=== PATIENT | female | born 1950 | race Caucasian/White ===

== ENCOUNTER 2017-09-04 14:20 | Inpatient (IN) ==
[2017-09-04 15:56] VITALS: BMI 26.8
--- NOTE | 2017-09-04 16:16 | IRU History & Physical Report ---
HPI IRU Date: Date: 09/04/17 Time: 1610 Chief complaint: I had a seizure HPI: Ms. Sewell is a pleasant 67-year-old female referred by Dr. Gavino King at [facility]. Primary care provider is Dr. Garcia Norman. 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 Patient developed acute confusion at home on 08/30/2017. History is obtained from the patient as well as her as well as transfer records. When her first came home that day she seemed to be fine. She then went into the bathroom and he found her at that location "speaking gibberish" and staring off to the right side. She complained of dizziness and was acutely confused. That was at roughly 5:30 PM on 08/30/2017. Her contacted Dr. Torres, oncologist, who advised her to go directly to [facility]. EMS was activated and she was transported to the emergency department at [facility]. Initial NIH score was 15 (for confusion, forced right gaze, right-sided weakness and severe aphasia with mild dysarthria and right sided neglect). The on-call stroke physician, Dr. Joe recommended obtaining CT of the head and CT angiogram of the head and neck. CT of the head revealed improvement from prior MRI study with resolution of previously seen large mass in the left frontal lobe as well as vasogenic edema. 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 CT angiogram of the head and neck was negative for significant stenosis. There was ring enhancing mass to the left parietal lobe. She was admitted to the neuro critical care unit. The patient subsequently was noted to have rhythmic tremors which then transitioned to a tonic-clonic seizure lasting about 1-1/2 minutes. Seizure was self aborted prior to obtaining Ativan for administration. electrocardiogram technician arrived and she was placed on continuous EEG. Patient was then intubated and given Ativan and sedated with propofol for burst suppression. She was reportedly intubated on August 30 and extubated on September 02. She was loaded with Keppra intravenously and transitioned to oral Keppra. She was also started on corticosteroids in the form of Decadron. She was seen by Dr. Sauceda, neurosurgery. With regard to the patient's malignancy, she has reportedly undergone 10 rounds of radiation with 6 rounds of chemotherapy with her last chemotherapy being given 4 weeks ago. She is scheduled to start her next chemotherapy next month. Oncologist is Dr. Torres and radiation therapist is Dr. Morgan. She is reported to have some memory issues as a baseline according to her . However since the seizure is been dramatically worse. In addition, the patient has developed worsening visual changes and has seen "children playing" out the right side of her field of vision. She has reduced vision and reduced hearing since diagnosis of the metastatic lung cancer as well. Prior level of functioning indicates that she was independent for all activities. 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 The patient lives in her own mobile home with her . She does not use any assistive devices for ambulation. She has 4 steps to get up into the home. Current level of functioning is as follows: She requires supervision for eating , minimum assistance for grooming, bathing, upper and lower body dressing and toileting. She requires minimum assistance for toilet transfers. She has multiple episodes of loss of balance and requires total assistance for walking 120 feet. She requires minimum assistance for stairs. As noted she has loss of balance particularly with turning her head. She has multiple balance deficits and ambulation deficits along with cognition reduction and safety awareness deficits. She has visual perceptual deficits. She has required speech therapy and modification of her diet as well. She was seen by speech therapy in [place] and underwent a bedside swallow evaluation. Recommendation was for. Solids and nectar thick liquids, straws okay , upright and alert for all oral intake, small bites and sips slow rate. We discussed the issue of resuscitation with her present. At this time she wants to be a full code. The following medical conditions are noted and require active monitoring and/or management: 1. Seizure with recent status epilepticus 2. Metastatic small cell lung cancer to brain 3. Hypertension The following therapies will be needed: 1. Physical therapy: for transfers and ambulation and stairs. 2. Occupational therapy: for ADL's and transfers. 3. Speech therapy: for swallow eval, training and cognitive linguistic training 4. Medical management: for the above conditions. 5. 24 hour Rehabilitation Nursing to monitor and address the following: Neurologic status, monitor for recurrent seizures, swallowing safety and to reduce fall risk. 6. Dietitian: in view of malignancy and change in swallow ability [facility] Patient Stated Medical History Hypertension Yes Sleep Apnea No Anemia Yes Other Musculoskeletal Yes: LOSS OF MEMORY, Chemotherapy Yes Medical History Updates: 1. Metastatic small cell lung cancer, metastatic to brain. 2. Seizures with recent status epilepticus. 3. Hypertension Surgical History: 1. Insertion of Port-A-Cath 03/26/2017. 2. Percutaneous biopsy left lung mass 03/02/2017. 3. HILDA with BSO 1996. 4. Breast biopsy, 1970s, benign. 5. Detached retina, right eye, repaired with laser treatment Family History: Mother has history of stroke. Father of malignancy as did her grandmother had bone cancer. Grandfather on her mother's side had cancer of the colon. Brother had coronary artery disease and diabetes. 2 sisters have had "pelvic cancer." - Social History Smoking status: Former smoker Packs per day: 1 (patient smoked from age 23 through age 64, stopping 3 years ago.) Alcohol intake: former (reports fairly heavy use in the past but not for number of years. 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 She is and lives with her in a mobile home. They have 4 steps to get up into their home. Review of Systems - Constitutional Constitutional: Present: weight gain (with use of corticosteroids.). Absent: anorexia, chills, fatigue, fever(s), headache(s), lethargy, malaise, night sweats, weakness, weight loss - EENMT Eyes: Present: blurry vision, change in vision, other (visual hallucinations to her right.). Absent: diplopia Ears: Present: other (decreased hearing.) Mouth/Throat: Present: changes in swallowing. Absent: painful swallowing, change in taste, bleeding gums, change in voice - Cardiovascular Cardiovascular: Absent: chest pain, palpitations, syncope, dyspnea on exertion, orthopnea, edema, cyanosis, heart murmur Rhythm: Present: regular rhythm Vascular: Absent: intermittent claudication, pedal edema, unilateral swelling - Respiratory Respiratory: Present: cough, dyspnea, dyspnea on exertion. Absent: hemoptysis, wheezing, pain on inspiration, chest congestion, excessive phlegm production - Gastrointestinal Gastrointestinal: Present: constipation. Absent: abdominal pain, change in bowel habits, diarrhea, dyspepsia, dysphagia, early satiety, hematochezia, melena, nausea, vomiting - Musculoskeletal Musculoskeletal: Absent: arthralgias, back pain, joint swelling, limited range of motion, muscle weakness - Integumentary/Breasts Integumentary: Absent: alopecia, erythema, lesions, pruritus, rash, jaundice - Neurological Neurological: Present: confusion, convulsions, loss of vision, memory loss. Absent: abnormal gait, abnormal movements, abnormal speech, dizziness, focal weakness, frequent falls, headache(s), numbness, paresthesias, tremor(s) - Psychiatric Psychiatric: Absent: abnormal sleep pattern, anxiety, depression - Endocrine Endocrine: Absent: cold intolerance, flushing, heat intolerance, palpitations - Hematologic/Lymphatic Hematologic/Lymphatic: Absent: easy bleeding, easy bruising, lymphadenopathy - Allergic/Immunologic Allergic/Immunologic: Absent: urticaria Medications Home Medications Medication Instructions Recorded Confirmed Type Dexamethasone Po [Decadron] 1 tab PO QID 03/23/17 09/04/17 History Multivitamin [Multivitamins] 1 tab PO DAILY 03/23/17 09/04/17 History levETIRAcetam [Levetiracetam] 2 tab PO BID 09/04/17 09/04/17 History Allergies Allergy/AdvReac Type Severity Reaction Status Date / Time alendronate sodium Allergy Rash Verified 05/04/17 08:50 [From Fosamax] Penicillins Allergy Verified 05/04/17 08:50 Exam Vital Signs: Temperature 97.8 F 09/04/17 15:53 Pulse Rate 97 09/04/17 15:53 Respiratory Rate 20 09/04/17 15:53 Blood Pressure 148/73 H 09/04/17 15:53 Pulse Oximetry 100 09/04/17 15:53 Height/Weight/BMI: Height 1.73 m Weight 80 kg Body Mass Index 26.8 - Constitutional Present: no acute distress, well nourished, well developed, average body habitus , cooperative - Routine HEENT Exam Head: Present: normocephalic, atraumatic. Absent: cushingoid faces, abrasion, laceration, hematoma Eye: Present: EOMI. Absent: PERRL (the left pupil is irregular which she states was sustained in an accident as a child.), conjunctival icterus, scleral injection, periorbital swelling, nystagmus ENT: Present: mucous membranes moist, oropharynx clear. Absent: dentition normal (has no upper teeth.) - Routine Neck Exam Present: supple, full ROM, trachea midline. Absent: lymphadenopathy, thyromegaly, tenderness, swelling - Routine Chest/Breast/Axilla Exam Chest wall: Absent: tenderness, mass Axillae: Absent: lymphadenopathy, mass - Routine Respiratory Exam Present: CTA bilaterally. Absent: accessory muscle use, decreased breath sounds , prolonged expiratory phase, rales, respiratory distress, rhonchi, stridor, wheezes, crackles, distant breath sounds - Routine Cardiovascular Exam Present: RRR, S1, S2, no murmur. Absent: gallop, S3, S4, click, irregular rhythm Comments: Port noted in upper chest - Routine Abdominal Exam Present: soft, normoactive bowel sounds, non distended, non tender. Absent: rebound, guarding, firm, rigid, organomegaly, mass, hernia, wound - Routine Extremities Exam Present: no edema, non tender, pulses intact, normal capillary refill. Absent: cyanosis, clubbing - Routine Back/Spine/Pelvis Exam Back/Spine: Present: full ROM. Absent: scoliosis, kyphosis - Routine Skin Exam Present: intact, dry, warm. Absent: cyanosis, erythema, pallor, mottling, petechiae, urticaria, lesions, jaundice - Routine Neurological Exam Present: alert, CN II-XII intact, altered mental status (somewhat delayed processing time. Reduced hearing, which this as well.), moving all extremities, facial asymmetry, normal speech, tremors. Absent: oriented X3 (she states she is at via [facility]. However she does know the month, date and year.) - Routine Psychiatric Exam Present: normal affect, normal thought process, cooperative, good insight, good judgment. Absent: depressed, anxious Comments: Somewhat slow to respond at times. No slurred speech as noted. No facial droop. IRU A/P (1) Seizure disorder Current visit: Yes Status: Acute She has had recent status epilepticus requiring intubation and critical care management. She was intubated for approximately 3 days. Since that time her memory has been much worse. She has developed some visual hallucinations. She has sustained multiple functional deficits and requires a multidisciplinary approach with PT, OT and speech therapy. (2) Small cell lung carcinoma Current visit: Yes Status: Chronic Diagnosis approximate February 2017. Dr. Torres is her oncologist. Has received radiation therapy as well as chemotherapy. Most recent cerebral scanning shows improvement in lesions. (3) Hypertension Qualifiers: Hypertension type: essential hypertension Qualified Code(s): I10 - Essential (primary) hypertension Current visit: Yes Status: Chronic DVT Prophylaxis: SCD's, Lovenox GI Prophylaxis: Protonix Resuscitation Status: Full Code - Course Hospital Course: Donald Huffman MD: - Interventions to Obtain Goals PT Treatment Plan: Balance/Proprioception, Functional Activities, Gait Training , Patient/Family Education, Therapeutic Exercise OT Treatment Plan: ADL (Basic Care), Balance Training, Coginitive Skills Development, IADL, Pt./Family Education, Ther. Exercise for ADL Goals Progress/Modifications: This patient had a recent diagnosis of status epilepticus. This is likely due to metastatic disease in the brain. However the lesions were improved on CT scan compared to previous imaging. She has sustained multiple functional deficits and will require a multidisciplinary approach with PT, OT, speech therapy and dietitian along with 24 hour rehabilitation nursing and medical supervision.
--- NOTE | 2017-09-04 16:33 | IRU 24Hr Post Admit Eval ---
24 Hr Post Admission Physical - Relevant Changes Relevant Changes: No Reviewed: I have reviewed the patient's information and concur with the finding and results of the pre-admission screen. Certification: I certify the patient for rehabilitation. - Patient Condition (1) Seizure disorder Status: Acute Code(s): G40.909 - Epilepsy, unspecified, not intractable, without status epilepticus Classification: Present on IRF Admission, IRF Tx That Should Address Diagnosis, Diagnosis Requiring Medical Follow Up (2) Small cell lung carcinoma Status: Chronic Code(s): C34.90 - Malignant neoplasm of unspecified part of unspecified bronchus or lung Classification: Present on IRF Admission, Diagnosis Requiring Medical Follow Up (3) Hypertension Status: Chronic Qualifiers: Hypertension type: essential hypertension Qualified Code(s): I10 - Essential (primary) hypertension Code(s): I10 - Essential (primary) hypertension Classification: Present on IRF Admission, IRF Tx That Should Address Diagnosis, Diagnosis Requiring Medical Follow Up - Prior Functional Status Lives With: Spouse Residence Type: Apartment/Private Home Assitive Devices: None Prior Functional Status: Indep. at home or school - Current Functional Status Current Level of Function: Current level of functioning is as follows: She requires supervision for eating , minimum assistance for grooming, bathing, upper and lower body dressing and toileting. She requires minimum assistance for toilet transfers. She has multiple episodes of loss of balance and requires total assistance for walking 120 feet. She requires minimum assistance for stairs. As noted she has loss of balance particularly with turning her head. She has multiple balance deficits and ambulation deficits along with cognition reduction and safety awareness deficits. She has visual perceptual deficits. She has required speech therapy and modification of her diet as well. Failed Alternative Therapy: Arrived from Acute Care Patient Requirements: The patient requires oversight by rehabilitation physician to manage their rehabilitation treatment plan and multidisciplinary approach to care that can only be provided in an IRF and requires a multidisciplinary approach to care, provided by professional PTs, OTs, STs, dieticians, RTs, rehabilitation nurses and is not available in lesser levels of care. Limitations Req: Mobility Impairment, ADL Impairment, Cognitive Impairment Therapy: The patient is to receive therapy at least 5 days a week. Plan of Care Comment: Physical therapy: 75 minutes daily, 5 days weekly. Occupational therapy: 75 minutes daily, 5 days weekly. Speech therapy: 30 minutes daily, 5 days weekly - Complications/Comorbidities Impact on Functional Outcomes: Patient's reduced memory and cognitive deficit may negatively impact her functional outcome. Barriers to Discharge: Weakness, Balance, Endurance, Comprehension - Plan to Avoid Complications Plan to Avoid Complications: The patient cannot receive this care in a lesser intensive setting such as Correction or Outpatient Therapy due to the patient requiring the following : Patient requires close monitoring of her neurologic status to monitor for recurrence of seizure, or further neurologic decline. She requires a multidisciplinary approach with PT, OT, speech therapy and medical supervision. .
[2017-09-04] MEDS: DEXAMETHASONE 4 MG TABLET PO SCH ×2 (17:55→21:52)
[2017-09-04] MEDS: LEVETIRACETAM 500 MG TABLET PO SCH (21:52)
[2017-09-05] MEDS: DEXAMETHASONE 4 MG TABLET PO SCH ×4 (04:07→21:20)
[2017-09-05] MEDS: PANTOPRAZOLE 40 MG TABLET PO SCH (05:34)
[2017-09-05] MEDS: LEVETIRACETAM 500 MG TABLET PO SCH ×2 (08:34→21:22)
[2017-09-05] MEDS: ENOXAPARIN 40 MG/0.4 ML INJECTION SQ SCH (08:37)
[2017-09-05] MEDS: MULTI-VITAMIN + MINERAL TABLET PO SCH (08:37)
--- NOTE | 2017-09-05 11:31 | Consult Note ---
Consult Information - Data of Consult Consult date: 09/05/17 Requesting Physician: Donald Huffman MD Primary Care Provider: Garcia Norman MD Family Provider: Garcia Norman MD - Consult Narrative Reason for consult: Seizures, metastatic small cell lung cancer History of present illness: Ada is a very pleasant 67-year-old female who was diagnosed with small cell lung cancer in February 2017. She has been under the care of Dr. Kamara and has undergone 6 rounds of chemotherapy with 10 rounds of radiation. On 08/30/17, patient's came home to find patient having some confusion and abnormal speaking. She complained of feeling dizzy and then became nonverbal with a gaze to the right. Patient contacted EMS and patient was transported to via [place] for acute evaluation. There patient began having a tonic-clonic seizure, upon CT scan. Patient was found to have a large mass in the left frontal lobe with presence of edema, found to be metastatic disease. Patient continued to have intermittent seizures and eventually was intubated and admitted to the neuro critical care unit. Patient was on the ventilator from 08/30 until 09/02. She received IV Keppra. During that same time with them was transitioned to oral Keppra as well as corticosteroids. Patient was followed by Dr. Suaceda during her stay. Given the overall weakness and debility following this significant event. Patient was screened and accepted to the inpatient rehabilitation unit for ongoing therapy and strengthening. Patient is seen today for initial medical consultation with her at the bedside. Her is very attentive and give us very specific details regarding patient's past medical history and dates. Patient is scheduled for her next chemotherapy in September. She has required 2 separate blood transfusions following chemotherapy for treatment of anemia. Today patient complains of having a scratchy throat with a hoarse voice that has been present since being extubated on the . Otherwise, she has no complaints. She does report having intermittent mild headaches that are generally treated with Tylenol. She does remember having visual hallucinations while on IV antiepileptic medications. She states that she would see small children in her room, running around. It wasn't until yesterday that she recognized that those were hallucinations rather than reality. Past Medical History Patient Stated Medical History Metastatic small cell lung cancer Metastases mass to brain Seizures GERD Right visual changes (previous detached retina) Previous hypertension Medical History Updates: 1. Metastatic small cell lung cancer, metastatic to brain. 2. Seizures with recent status epilepticus. 3. Hypertension Surgical History: 1. Insertion of Port-A-Cath 03/26/2017. 2. Percutaneous biopsy left lung mass 03/02/2017. 3. HILDA with BSO 1996. 4. Breast biopsy, 1970s, benign. 5. Detached retina, right eye, repaired with laser treatment Family History Updates: Mother-history of stroke. Father- from malignancy. Brother-coronary artery disease, diabetes. Sister-pelvic cancer - Social History Smoking status: Former smoker (smoked from age [age]. 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 Norman Oncologist-Dr. Torres Radiation oncologist-Dr. Morgan Review of Systems All systems PM: 10-point ROS was reviewed, no additional remarkable complaints except - EENMT Eyes: Present: as per HPI, change in vision, other (visual changes on the right. present since 08/30) Mouth/Throat: Present: scratchy throat (since extubation) Medications Home Medications Medication Instructions Recorded Confirmed Type Dexamethasone Po [Decadron] 1 tab PO QID 03/23/17 09/04/17 History Multivitamin [Multivitamins] 1 tab PO DAILY 03/23/17 09/04/17 History levETIRAcetam [Levetiracetam] 2 tab PO BID 09/04/17 09/04/17 History Allergies Allergy/AdvReac Type Severity Reaction Status Date / Time alendronate sodium Allergy Rash Verified 09/04/17 19:04 [From Fosamax] amoxicillin Allergy Verified 09/04/17 19:04 Penicillins Allergy Verified 09/04/17 19:04 Exam Vital Signs: Temperature 98.2 F 09/04/17 20:47 Pulse Rate 98 09/05/17 07:00 Respiratory Rate 20 09/05/17 07:00 Blood Pressure 129/71 09/05/17 07:00 Pulse Oximetry 96 09/05/17 07:00 Height/Weight/BMI: Height 1.73 m Weight 80 kg Body Mass Index 26.8 - Constitutional Present: no acute distress, well nourished, well developed - Routine HEENT Exam Eye: Present: EOMI, PERRL ENT: Present: mucous membranes moist, dentition normal - Routine Respiratory Exam Present: CTA bilaterally. Absent: wheezes - Routine Cardiovascular Exam Present: RRR, S1, S2. Absent: murmur - Routine Abdominal Exam Present: soft, normoactive bowel sounds, non distended. Absent: tenderness - Routine Extremities Exam Present: normal capillary refill - Routine Skin Exam Present: intact, dry, warm - Routine Neurological Exam Present: alert, oriented X3, CN II-XII intact, moving all extremities - Routine Psychiatric Exam Present: normal affect, cooperative Results - Labs CBC & Chem 7: 09/05/17 04:00 09/05/17 04:00 Assessment and Plan Assessment and Plan: Impression Metastatic small cell lung cancer Mets mass to brain Seizure disorder GERD Previous HTN- resolved since chemo Plan Agree with admission to IRU under the care of Dr. Huffman for ongoing therapy and strengthening We will continue to monitor patient for evidence of seizures. She will continue on Keppra 1000 milligrams twice a day long-term. Continue with Decadron. Given history of acid reflux. Will continue Protonix 40 milligrams daily Lovenox SQ for DVT PPX Encourage work with PT and OT for ongoing strengthening as patient does hope to return independently at home with her . The hospitalist services will continue to follow patient and medical management her existing comorbidities. At time of discharge her medical care will return to primary care provider, Dr. Garcia Norman DVT Prophylaxis: Lovenox GI Prophylaxis: Protonix Resuscitation Status: Full Code - Physician Narrative Physician: Tamara Brooks MD Narrative: Date: 09/05/17 Time: 4 PM I reviewed this chart, the patient history, and the TRUCK DRIVER's/PA's documented findings as above. We discussed and formulated the assessment and plan as above with the additions below.-Dr. Brooks The patient was seen this afternoon in her room accompanied by her . She was recently hospitalized at [place] for tonic-clonic seizures secondary to metastatic brain lesions. She was intubated, sedated and placed on IV Keppra and Decadron. She was extubated on the and converted to oral Keppra and Decadron. She did have some hallucinations and thought there were children in her room while she was intubated but has not had hallucinations since that time. She complains of hoarse voice and sore throat that is gradually improving. The symptoms are likely secondary to her recent intubation. She denies any pain elsewhere. She states her appetite has been good. She states she did not have a bowel movement for several days in the hospital at [place] but then had a large amount of diarrheal stool that has now resolved. She states she is urinating well. She states she has had no difficulties with therapy today. On exam she is alert and in no acute distress. HEENT reveals sclerae to be anicteric and pupils are equal. Oropharynx is moist. She does have some bruising of her uvula, likely secondary to recent intubation. Neck is supple. Chest is clear to auscultation. Cardiovascular reveals a regular rate and rhythm. Abdomen is soft and nontender. Extremities are free of edema. Impression and plan Small cell lung cancer with metastasis to brain Seizures secondary to brain metastases-currently doing well on oral Keppra and Decadron Generalized weakness post seizures/intubation-continue with therapy as directed by Dr. Huffman Sore throat post intubation-we'll start Chloraseptic [place] as needed Memory decline-likely secondary to brain metastasis and/or chemotherapy Hospital Course Summary Disclaimer: The visit summary below is not to be considered part of the above Progress Note. Hospital Course: Impression Metastatic small cell lung cancer Mets mass to brain Seizure disorder GERD Previous HTN- resolved since chemo Plan Agree with admission to IRU under the care of Dr. Huffman for ongoing therapy and strengthening We will continue to monitor patient for evidence of seizures. She will continue on Keppra 1000 milligrams twice a day long-term. Continue with Decadron. Given history of acid reflux. Will continue Protonix 40 milligrams daily Lovenox SQ for DVT PPX Encourage work with PT and OT for ongoing strengthening as patient does hope to return independently at home with her . The hospitalist services will continue to follow patient and medical management her existing comorbidities. At time of discharge her medical care will return to primary care provider, Dr. Garcia Norman
[2017-09-05] MEDS: SORE THROAT SPRAY 20ml PO PRN ×2 (16:27→19:10)
[2017-09-06] MEDS: DEXAMETHASONE 4 MG TABLET PO SCH ×4 (05:07→22:30)
[2017-09-06] MEDS: PANTOPRAZOLE 40 MG TABLET PO SCH ×2 (05:08→06:17)
[2017-09-06] MEDS: LEVETIRACETAM 500 MG TABLET PO SCH ×2 (08:39→20:59)
[2017-09-06] MEDS: MULTI-VITAMIN + MINERAL TABLET PO SCH (08:39)
[2017-09-06] MEDS: ENOXAPARIN 40 MG/0.4 ML INJECTION SQ SCH (08:39)
--- NOTE | 2017-09-06 10:48 | IRU Progress Note ---
- Subjective/Serverity of Illness Date: 09/06/17 Ada was evaluated in her room today. She seems to be fairly comfortable. Voice is laryngitic, possibly related to involvement of recurrent laryngeal nerve. She states however that the voice is improving. She does complain of sore throat which she ascribes to the previous ET tube in [place] (she was intubated for about 3 days during her episode of status epilepticus). She is using Sucrets with benefit. She denies any cough or sputum. She does report episodes of dyspnea with exertion. Otherwise she is tolerating therapy without difficulty. She denies any nausea or vomiting. She denies any pains and denies any headaches. She has had no further episodes of seizure activity and remains on Keppra 1000 mg twice daily plus Decadron. She does report visual hallucinations with "movement" noted are the right field of vision. Upon admission she was seeing some children playing. No doubt this is related to her underlying malignancy as well as recent edema. Review blood pressures indicate good control. Exam Vital Signs: Temperature 95.8 F L 09/06/17 07:00 Pulse Rate 89 09/06/17 07:00 Respiratory Rate 16 09/06/17 07:00 Blood Pressure 134/78 09/06/17 07:00 Pulse Oximetry 93 09/06/17 07:00 Height/Weight/BMI: Height 1.73 m Weight 80 kg Body Mass Index 26.8 - Constitutional Present: no acute distress, well nourished, well developed, cooperative Comments: Laryngitic voice quality. - Routine HEENT Exam Head: Present: normocephalic, atraumatic Eye: Present: EOMI ENT: Present: mucous membranes moist, oropharynx clear. Absent: dentition normal - Routine Neck Exam Present: supple - Routine Respiratory Exam Present: decreased breath sounds, CTA bilaterally. Absent: respiratory distress , wheezes, crackles - Routine Cardiovascular Exam Present: RRR, S1, S2. Absent: murmur - Routine Abdominal Exam Present: soft, normoactive bowel sounds, non distended. Absent: tenderness - Routine Extremities Exam Present: no edema, normal capillary refill - Routine Skin Exam Present: dry, warm - Routine Neurological Exam Present: alert, oriented X3, CN II-XII intact. Absent: motor deficit ( neurologic exam today indicates no facial droop, speech fluent although laryngitic. Seems to have good strength bilaterally in the upper and lower extremities.) - Routine Psychiatric Exam Present: normal affect, normal thought process, visual hallucinations ("movement " continuously out of right field of vision.) Results IRU - Labs Labs: Have reviewed labs and other providers notes as well as all chart data. IRU A/P (1) Seizure disorder Current visit: Yes Status: Acute She is reported to be adequately controlled on Keppra at present. Also remains on Decadron for cerebral edema. Tolerating medications adequately. No specific evidence of seizure activity although does have visual hallucinations which are likely due to brain metastases. (2) Small cell lung carcinoma Current visit: Yes Status: Chronic Patient is in between chemotherapy treatments at the present time. Does have laryngitic voice quality which raises the possibility of involvement of recurrent laryngeal nerve. (3) Hypertension Qualifiers: Hypertension type: essential hypertension Qualified Code(s): I10 - Essential (primary) hypertension Current visit: Yes Status: Chronic Blood pressures are reviewed and appear to be adequately controlled. (4) Debility Current visit: Yes Status: Acute She has generalized debility based on recent status epilepticus. She is cooperative with therapy and making progress. DVT Prophylaxis: Lovenox Resuscitation Status: Full Code - Course Hospital Course: Donald Huffman MD: 09/06/17 10:50 No recurrent seizures. Does have visual hallucinations out of the right field of vision. Blood pressures are controlled. Tolerating therapy well. - Interventions to Obtain Goals PT Treatment Plan: Balance/Proprioception, Functional Activities, Gait Training , Patient/Family Education, Therapeutic Exercise OT Treatment Plan: ADL (Basic Care), Balance Training, IADL, Pt./Family Education, Ther. Exercise for ADL Goals Progress/Modifications: Neurologic exam today shows good strength bilaterally in the upper and lower extremities. Seems to be well oriented and cooperative. Does not seem impulsive at present. Does have what appears to be visual hallucinations out the right side of her visual espinoza with "movement" constantly noted. Does not seek "children playing" as she did previously. She does report a sore throat which is likely due to the intubation. Inspection of the throat shows no particular redness and no exudate. Seems to be helped by the use of lozenges. She is tolerating therapy well. Her voice quality is laryngitic which raises the possibility of involvement of recurrent laryngeal nerve. Please note that the patient's individual plan of care was developed and documented today, requiring review of therapy notes, medical conditions and anticipated functional recovery. This required additional medical decision making with regard to interaction of the patient's medical issues with the anticipated functional recovery. Please see separate document.
--- NOTE | 2017-09-06 10:55 | IRU Plan of Care ---
[facility] Overall Plan of Care - Date Date: 09/06/17 - Patient Impairments (1) Seizure disorder Code(s): G40.909 - Epilepsy, unspecified, not intractable, without status epilepticus Status: Acute Classification: Present on IRF Admission, IRF Tx That Should Address Diagnosis, Diagnosis Requiring Medical Follow Up (2) Small cell lung carcinoma Code(s): C34.90 - Malignant neoplasm of unspecified part of unspecified bronchus or lung Status: Chronic Classification: Present on IRF Admission, Diagnosis Requiring Medical Follow Up (3) Hypertension Qualifiers: Hypertension type: essential hypertension Qualified Code(s): I10 - Essential (primary) hypertension Code(s): I10 - Essential (primary) hypertension Status: Chronic Classification: Present on IRF Admission, IRF Tx That Should Address Diagnosis, Diagnosis Requiring Medical Follow Up (4) Debility Code(s): R53.81 - Other malaise Status: Acute Classification: Present on IRF Admission, IRF Tx That Should Address Diagnosis - Relevant Changes Relevant Changes: No Reviewed: I have reviewed the patient's information and concur with the finding and results of the pre-admission screen. Certification: I certify the patient for rehabilitation. - Medical Prognosis Medical Prognosis: Good Vital Signs: Last Vital Signs Temp 95.8 F L 09/06/17 07:00 Pulse 89 09/06/17 07:00 Resp 16 09/06/17 07:00 BP 134/78 09/06/17 07:00 Pulse Ox 93 09/06/17 07:00 - Anticipated Interventions Anticipated Interventions: The patient requires inpatient IRF care for PT, OT, and/or ST for residuals remaining from status epilepticus resulting in muscular weakness and strength deficits. An individualized overall plan of care has been developed after careful review of the patient's preadmission screening, post admission physician evaluation and assessments of all therapy disciplines and/or other pertinent clinicians involved in treating the patient. This indicates medical necessity and rehabilitation necessity have been established through a thorough review of all available medical information. - Current Functional Status Failed Alternative Therapy: Arrived from Acute Care Patient Requires: The patient requires oversight by rehabilitation physician to manage their rehabilitation treatment plan and multidisciplinary approach to care that can only be provided in an IRF and requires a multidisciplinary approach to care, provided by professional PTs, OTs, STs, rehabilitation nurses, and may require STs, dieticians, and RTS. This is not available in lesser levels of care. Therapy: The patient is to receive therapy at least [address] Treatment Plan: Swallow Precautions, Modified Diet, Cognitive Linguistic Tx ST Treatment Plan Duration: Two Weeks ST Treatment Plan Frequency: Five Times Per Week Plan of Care Comment: Physical therapy: 75 minutes daily, 5 days weekly. Occupational therapy: 75 minutes daily, 5 days weekly. Speech therapy: 30 minutes daily, 5 days weekly - Anticipated LOS/Outcomes Anticipated Functional Outcome: It is anticipated the patient will be able to return to her home with the assistance of her providing some assistance with IADLs. It is anticipated the patient will be able to perform ADLs with modified independent or independent level of functioning. It is anticipated that she will be able to ambulate with modified independent level. Anticipated Length of Stay (days): 7 Anticipated DC Destination: Home, Self Prison Safety Plan: The patient will be provided with the development of a Home Safety Plan for return to a home or home-like environment and and to ensure safety post discharge. - Plan to Avoid Complications Barriers to Attaining Goals: Weakness, Balance, Endurance Plan to Avoid Complications: The patient cannot receive this care in a lesser intensive setting such as Detention or Outpatient Therapy due to the patient requiring the following : Patient requires close 24 hour rehabilitation nursing monitoring of her neurologic status to monitor for recurrence of seizure activity as well as other neurologic decline related to her brain malignancy. She requires a multidisciplinary approach with speech therapy for cognition and linguistic training, physical therapy and occupational therapy due to her multiple medical problems and debilitation. She requires medical supervision due to her recent seizures and metastatic lung cancer.
[2017-09-07] MEDS: DEXAMETHASONE 4 MG TABLET PO SCH ×4 (05:44→23:02)
[2017-09-07] MEDS: PANTOPRAZOLE 40 MG TABLET PO SCH (05:44)
[2017-09-07] MEDS: ENOXAPARIN 40 MG/0.4 ML INJECTION SQ SCH (08:39)
[2017-09-07] MEDS: LEVETIRACETAM 500 MG TABLET PO SCH ×2 (08:40→20:39)
[2017-09-07] MEDS: MULTI-VITAMIN + MINERAL TABLET PO SCH (08:41)
[2017-09-07] MEDS: SORE THROAT SPRAY 20ml PO PRN ×2 (09:37→20:40)
--- NOTE | 2017-09-07 10:45 | IRU Progress Note ---
- Subjective/Serverity of Illness Date: 09/07/17 Ada was interviewed and examined in her room on inpatient rehabilitation. She continues to have a laryngitic voice which she states is getting better. She reports that her sore throat is also improved (apparently due to the previous intubation). She denies any fever, etc. She has no cough and no sputum. She denies any headache. She has not been observed to have any further seizure activity. There is been no further neurologic change. Some issues remain with regard to short-term memory. She reports that she continues to see "movement" in the right field of vision although it is minimal at this time. She denies actual "children playing" that she had previously seen. Her appetite is reasonable. She denies any pain anywhere at this time. Exam Vital Signs: Temperature 97.4 F 09/07/17 09:51 Pulse Rate 90 09/07/17 09:51 Respiratory Rate 16 09/07/17 09:51 Blood Pressure 136/70 09/07/17 09:51 Pulse Oximetry 97 09/07/17 09:51 Height/Weight/BMI: Height 1.73 m Weight 80 kg Body Mass Index 26.8 - Constitutional Present: no acute distress, well nourished, well developed, cooperative - Routine HEENT Exam Head: Present: normocephalic Eye: Present: EOMI ENT: Present: mucous membranes moist, oropharynx clear - Routine Neck Exam Present: supple, full ROM - Routine Respiratory Exam Present: CTA bilaterally. Absent: wheezes - Routine Cardiovascular Exam Present: RRR, S1, S2. Absent: murmur - Routine Abdominal Exam Present: soft, normoactive bowel sounds, non distended. Absent: tenderness - Routine Extremities Exam Present: no edema. Absent: cyanosis, clubbing - Routine Skin Exam Present: dry, warm - Routine Neurological Exam Present: alert, oriented X3 (continued concern regarding short-term memory noted.), CN II-XII intact. Absent: motor deficit (appears to have reasonable strength bilaterally in the upper and lower extremities.), facial asymmetry, normal speech (laryngitic quality to voice.) - Routine Psychiatric Exam Present: normal affect, visual hallucinations (out of the right side of her field of vision although improved.) IRU A/P (1) Seizure disorder Current visit: Yes Status: Acute She appears to be stable on her current dose of Keppra. No recurrence of seizure activity has been identified. Neurologically she remains intact as well. Continues to have some degree of visual hallucinations but these may have predated her seizure. (2) Small cell lung carcinoma Current visit: Yes Status: Chronic (3) Hypertension Qualifiers: Hypertension type: essential hypertension Qualified Code(s): I10 - Essential (primary) hypertension Current visit: Yes Status: Chronic (4) Debility Current visit: Yes Status: Acute Continues to cooperate with therapy. Short-term memory is a concern. DVT Prophylaxis: Lovenox Resuscitation Status: Full Code - Course Hospital Course: Donald Huffman MD: 09/06/17 10:50 No recurrent seizures. Does have visual hallucinations out of the right field of vision. Blood pressures are controlled. Tolerating therapy well. 09/07/17 10:45 Blood pressures have been well controlled. No evidence of recurrent seizures. Cooperates with therapy. - Interventions to Obtain Goals PT Treatment Plan: Balance/Proprioception, Functional Activities, Gait Training , Patient/Family Education, Therapeutic Exercise OT Treatment Plan: ADL (Basic Care), Balance Training, IADL, Pt./Family Education, Ther. Exercise for ADL
--- NOTE | 2017-09-07 11:33 | Progress Note ---
- Date 09/07/17 Subjective: Ada was being evaluated by speech therapy. She still has a hoarse voice but she states it's improving. Her throat hurts a little bit and she's on a soft diet. She hears a buzzing sound (though the fluorescent lights in her room were , in fact, buzzing) - we encouraged her to see if she still hears this in other rooms. She denies headaches, weakness, or dizziness. She denies chest pain. She has not noticed any shortness of breath with activity today. No abdominal pain or nausea. She inquired about side effects of steroids. Objective Vital signs: Temperature 97.4 F 09/07/17 09:51 Pulse Rate 90 09/07/17 09:51 Respiratory Rate 16 09/07/17 09:51 Blood Pressure 136/70 09/07/17 09:51 Pulse Oximetry 97 09/07/17 09:51 Height/Weight/BMI: Height 1.73 m Weight 80 kg Body Mass Index 26.8 - Constitutional Present: no acute distress, well nourished, well developed - Routine HEENT Exam Head: Present: normocephalic ENT: Present: mucous membranes moist, oropharynx clear Comments: uvular tip still ecchymotic; mild pharyngeal erythema - Routine Respiratory Exam Present: CTA bilaterally - Routine Cardiovascular Exam Present: RRR, S1, S2 - Routine Abdominal Exam Present: soft, normoactive bowel sounds, non tender, distended (minimally) - Routine Extremities Exam Present: no edema, pulses intact, normal capillary refill - Routine Back/Spine/Pelvis Exam Back/Spine: Present: full ROM - Routine Musculoskeletal Exam Musculoskeletal: Present: no clubbing or cyanosis, moving extremities well - Routine Skin Exam Present: intact, dry, warm, alopecia - Routine Neurological Exam Present: alert, oriented X3, CN II-XII intact, moving all extremities, vision grossly intact, hearing grossly intact, normal speech - Routine Psychiatric Exam Present: normal affect, normal thought process, cooperative Results - Labs CBC & Chem 7: 09/05/17 04:00 09/05/17 04:00 Assessment and Plan Assessment and Plan: Impression Laryngitis Metastatic small cell lung cancer Mets mass to brain with hallucinations Seizure disorder secondary to above GERD Previous HTN- resolved since chemo Plan Laryngitis persists, but reportedly improving. Continue Keppra and Decadron. Symptoms improving. Continue therapies per attending. Labs and Vitals are stable. 09/07/2017-5:25 PM-I reviewed this chart, the patient history, and the INJECTION MOLDING PROCESS TECHNICIAN's/PA 's documented findings as above. We discussed and formulated the assessment and plan as above with the additions below.-Dr. Brooks Patient states she's feeling okay. Her sore throat and hoarse voice is improving. She states her appetite is "too good" and she wants to cut back on what she is eating. I did discuss with her that it's probably the Decadron making her more hungry. She has not had any further hallucinations other than possibly hearing a buzzing sound, however there is a buzzing sound in her room. She denies any pain. She feels that her strength is improving but she is having difficulties with some of the therapies such as walking backwards. On exam she is alert and in no acute distress. HEENT reveals oropharynx to be moist. There is decreased swelling of her uvula today. There is still some bruising. Chest is clear to auscultation. Cardiovascular reveals a regular rate and rhythm. Abdomen is soft and nontender. Extremities are free of edema. Speech is fluent. Impression and plan Regarding small cell lung cancer with metastasis to brain, overall the patient is doing well. No further seizures. She is doing well on Keppra and Decadron. No obvious hallucinations. Continue with therapy. DVT Prophylaxis: Lovenox GI Prophylaxis: Protonix Resuscitation Status: Full Code - Physician Narrative Narrative: Date: 09/07/17 Time: 1129 Hospital Course Summary Disclaimer: The visit summary below is not to be considered part of the above Progress Note. Hospital Course: admission Agree with admission to IRU under the care of Dr. Huffman for ongoing therapy and strengthening We will continue to monitor patient for evidence of seizures. She will continue on Keppra 1000 milligrams twice a day long-term. Continue with Decadron. Given history of acid reflux. Will continue Protonix 40 milligrams daily Lovenox SQ for DVT PPX Encourage work with PT and OT for ongoing strengthening as patient does hope to return independently at home with her . The hospitalist services will continue to follow patient and medical management her existing comorbidities. At time of discharge her medical care will return to primary care provider, Dr. Garcia Norman 09/07/17 Laryngitis persists, but reportedly improving. Continue Keppra and Decadron. Symptoms improving. Continue therapies per attending.
[2017-09-08] MEDS: DEXAMETHASONE 4 MG TABLET PO SCH ×4 (03:45→21:51)
[2017-09-08] MEDS: PANTOPRAZOLE 40 MG TABLET PO SCH (06:13)
[2017-09-08] MEDS: ENOXAPARIN 40 MG/0.4 ML INJECTION SQ SCH (08:31)
[2017-09-08] MEDS: MULTI-VITAMIN + MINERAL TABLET PO SCH (08:31)
[2017-09-08] MEDS: LEVETIRACETAM 500 MG TABLET PO SCH ×2 (08:31→20:22)
[2017-09-08] MEDS ORDERED: POLYETHYL GLYCOL 3350 17gm PACKET PO PRN (10:11)
[2017-09-08] MEDS: SENNA + DOCUSATE TABLET PO SCH ×2 (10:17→20:15)
[2017-09-09] MEDS: PANTOPRAZOLE 40 MG TABLET PO SCH ×2 (03:57→05:37)
[2017-09-09] MEDS: DEXAMETHASONE 4 MG TABLET PO SCH ×5 (03:57→23:56)
[2017-09-09] MEDS: ENOXAPARIN 40 MG/0.4 ML INJECTION SQ SCH (09:12)
[2017-09-09] MEDS: MULTI-VITAMIN + MINERAL TABLET PO SCH (09:13)
[2017-09-09] MEDS: SORE THROAT SPRAY 20ml PO PRN (09:15)
[2017-09-09] MEDS: LEVETIRACETAM 500 MG TABLET PO SCH ×2 (10:47→21:30)
[2017-09-09] MEDS: SENNA + DOCUSATE TABLET PO SCH ×2 (10:47→21:30)
[2017-09-10] MEDS: PANTOPRAZOLE 40 MG TABLET PO SCH ×2 (04:00→05:52)
[2017-09-10] MEDS: DEXAMETHASONE 4 MG TABLET PO SCH ×4 (04:00→22:30)
[2017-09-10] MEDS: MULTI-VITAMIN + MINERAL TABLET PO SCH (08:35)
[2017-09-10] MEDS: SENNA + DOCUSATE TABLET PO SCH ×2 (08:35→21:11)
[2017-09-10] MEDS: ENOXAPARIN 40 MG/0.4 ML INJECTION SQ SCH (08:35)
[2017-09-10] MEDS: LEVETIRACETAM 500 MG TABLET PO SCH ×2 (08:35→21:10)
--- NOTE | 2017-09-10 11:02 | IRU Progress Note ---
- Subjective/Serverity of Illness Date: 09/10/17 Ada was evaluated on acute inpatient rehabilitation. She states that she is doing very well. She reports that her laryngitis is improving. However, to my ear, she continues to have a very laryngitic voice. I presume this is related to the lung malignancy with involvement of recurrent laryngeal nerve although do not know that with certainty. She denies further hallucinations. Her appetite is excellent. She denies any nausea or vomiting. She has had no further seizure activity and seems to be tolerating Keppra without difficulty. Brief therapy update: She is able to ambulate 500 feet with standby assist level. She transfers with standby assistance and does car transfers with standby assistance. Her safety awareness appears to be much improved. If she turns her head rapidly she tends to lose her balance. A bit of medical issues we are actively managing and monitoring as follows: 1. Seizure activity: She is tolerating Keppra and Decadron okay. Does have increased appetite likely related to corticosteroids. No hallucinations and no further seizure activity noted. 2. Metastatic small cell lung cancer to brain: On most recent scan the lesions were improved. Does have a laryngitic voice as described above. 3. Hypertension: Her blood pressure is well controlled at present. Exam Vital Signs: Temperature 97.8 F 09/10/17 07:35 Pulse Rate 84 09/10/17 07:35 Respiratory Rate 14 09/10/17 07:35 Blood Pressure 135/71 09/10/17 07:35 Pulse Oximetry 98 09/10/17 07:35 Height/Weight/BMI: Height 1.73 m Weight 80.3 kg Body Mass Index 26.8 - Constitutional Present: no acute distress, well nourished, well developed, cooperative - Routine HEENT Exam Head: Present: normocephalic Eye: Present: EOMI ENT: Present: mucous membranes moist, oropharynx clear Comments: "Laryngitic" quality to voice. - Routine Neck Exam Present: supple - Routine Respiratory Exam Present: CTA bilaterally. Absent: wheezes - Routine Cardiovascular Exam Present: RRR, S1, S2. Absent: murmur - Routine Abdominal Exam Present: soft, normoactive bowel sounds, non distended. Absent: tenderness - Routine Extremities Exam Present: no edema. Absent: cyanosis, clubbing - Routine Skin Exam Present: dry, warm - Routine Neurological Exam Present: alert, oriented X3, CN II-XII intact - Routine Psychiatric Exam Present: normal affect, cooperative IRU A/P (1) Seizure disorder Current visit: Yes Status: Acute Tolerating Keppra well. No further seizure activity. (2) Small cell lung carcinoma Current visit: Yes Status: Chronic Clinically stable although does have laryngitic voice quality which may or may not be related to involvement of recurrent laryngeal nerve. (3) Hypertension Qualifiers: Hypertension type: essential hypertension Qualified Code(s): I10 - Essential (primary) hypertension Current visit: Yes Status: Chronic Her blood pressures are reviewed and are doing extremely well. (4) Debility Current visit: Yes Status: Acute Her safety awareness is much improved and she has done well with therapy. DVT Prophylaxis: Lovenox Resuscitation Status: Full Code - Course Hospital Course: Donald Huffman MD: 09/06/17 10:50 No recurrent seizures. Does have visual hallucinations out of the right field of vision. Blood pressures are controlled. Tolerating therapy well. 09/07/17 10:45 Blood pressures have been well controlled. No evidence of recurrent seizures. Cooperates with therapy. 09/10/17 11:04 Medically she is stable. No further seizures. Appetite increased likely related to Decadron. Doing well with therapy. - Interventions to Obtain Goals PT Treatment Plan: Balance/Proprioception, Functional Activities, Gait Training , Patient/Family Education, Therapeutic Exercise OT Treatment Plan: ADL (Basic Care), Balance Training, IADL, Pt./Family Education, Ther. Exercise for ADL Goals Progress/Modifications: I reviewed her therapy status as well as her medical status. She continues to tolerate therapy well. Her safety awareness has much improved. No further seizure activity. Question will be when and how rapidly to taper her Decadron. We will work with the hospitalist service in this regard. Her blood pressures are doing well. Team meeting today with anticipation of further clarification of how long to continue working with her at this level. She is doing well.
--- NOTE | 2017-09-10 13:46 | IRU Team Meeting ---
IRU Team Meeting - Nursing Bladder Management Level of Assist: Independent Bladder Frequency of Accidents: No accidents Bowel Assistive Devices Utilized:: Medication Bowel Management Level of Assist: Modified Independent Bowel Frequency of Accidents: No accidents Vital Signs: Vital Signs - 24 hr 09/09/17 15:57 09/09/17 21:41 09/10/17 07:35 Temperature 97.4 F 98.4 F 97.8 F Pulse Rate 87 85 84 Respiratory Rate 20 16 14 Blood Pressure 137/71 118/62 135/71 Pulse Oximetry 96 95 98 Current Medications: Dexamethasone (Decadron) 4 mg PO Q6H [facility] Last Admin: 09/10/17 11:21 Dose: 4 mg Enoxaparin Sodium (Lovenox) 40 mg SQ DAILY [facility] Last Admin: 09/10/17 08:35 Dose: 40 mg Levetiracetam (Keppra) 1,000 mg PO BID [facility] Last Admin: 09/10/17 08:35 Dose: 1,000 mg Magnesium Hydroxide (Mom) 30 ml PO DAILY PRN PRN Reason: Constipation Multivitamins/Minerals (Therapeutic - M) 1 tab PO DAILY [facility] Last Admin: 09/10/17 08:35 Dose: 1 tab Pantoprazole Sodium (Protonix Tab) 40 mg PO ACB [facility] Last Admin: 09/10/17 05:52 Dose: Not Given Polyethylene Glycol (Miralax) 17 gm PO DAILY PRN Senna/Docusate Sodium (Senna Plus Tablet) 1 tab PO BID [facility] Last Admin: 09/10/17 08:35 Dose: 1 tab Throat Lozenges (Chloraseptic [place]) 3 spray PO Q2H PRN Last Admin: 09/09/17 09:15 Dose: 2 spray Current Medical Issues: seizures, metastatic lung cancer, hypertension Comments: I certify that I personally led the interdisciplinary team meeting and agree with comments, barriers and goals indicated. Team meeting was held in the patient's room with the patient and the following family members present: patient's Ms. Sewell has tolerated the Keppra and Decadron well. She does have increased appetite. She has not had evidence of recurrent seizures on the current dose. Her blood pressures have been reasonably well-controlled. - Speech Therapy Speech therapy has worked with the patient with regard to cognition/memory as well as swallowing safety. She has been on a chopped diet due to some recent sore throat etc. However that is improved and her diet will be made regular. Speech therapy does recommend 24 hour supervision at least for the short term. - Physical Therapy Bed, Chair, Wheelchair Transfer Assist: Modified Independent Ambulation Ability: Stand By Assist/Supervision Ambulation Distance: 634 Stair Climbing Ability: Modified Independent Number of Steps Climbed: 14 Car Transfer Ability: Stand By Assist/Supervision Comments: Patient is standby assist for ambulation due to poor balance while turning her head. However she is improving. She is able to ambulate 500 feet. Balance has improved and she is meeting balance, endurance and transfer and strength goals. - Occupational Therapy Eating Ability: Independent Grooming Ability: Independent Bathing Ability: Modified Independent Upper Body Dressing Ability: Independent Lower Body Dressing Ability: Independent Tub Transfer Assist: Modified Independent Toileting Assist: Independent Toilet Transfer Assist: Independent Comments: Ada is doing well with ADL tasks at modified independent to independent functioning. She does require supervision with baking. She does require some verbal cues. She is improving well. - Goals Physical Therapy Goals: 09/10/17. 1. Zero loss of balance during gait training. 2. D/C planning. Occupational Therapy Goals: OT goals 09/10/17: 1.) Pt. to demo making simple meal prep with no vc's by d/c. 2.) d/c planning. - Barriers to Discharge Barriers to Attaining Goals: Other (Will require 24 hour supervision for a while ) - Care Plan Anticipated Length of Stay (days): 1 Anticipated DC Destination: Home, Self Care, Home Health Service I have led this team conference and agree with the plan. Interventions/Goals: Patient's indicates that someone plans to live with them for the time being which will provide 24-hour supervision. She is otherwise doing well and we anticipate a safe transition to her home tomorrow.
[2017-09-10 19:28] VITALS: TEMP 97.9
[2017-09-11] MEDS: DEXAMETHASONE 4 MG TABLET PO SCH ×2 (04:57→10:57)
[2017-09-11] MEDS: PANTOPRAZOLE 40 MG TABLET PO SCH (05:58)
[2017-09-11 07:16] VITALS: BP 117/63; PULSE 84; RESP 14; O2SAT 92
[2017-09-11] MEDS: MULTI-VITAMIN + MINERAL TABLET PO SCH (08:14)
[2017-09-11] MEDS: LEVETIRACETAM 500 MG TABLET PO SCH (08:14)
[2017-09-11] MEDS: SENNA + DOCUSATE TABLET PO SCH (08:15)
[2017-09-11] MEDS: ENOXAPARIN 40 MG/0.4 ML INJECTION SQ SCH (08:15)
--- NOTE | 2017-09-11 09:55 | IRU Progress Note ---
- Subjective/Serverity of Illness Date: 09/11/17 Ms. Sewell was interviewed and examined in her room on acute inpatient rehabilitation. She says that her visual hallucinations have abated. She is swallowing normally. She has questions about her medications which I addressed. She denies any chest pain, shortness of breath, dysphagia, or bowel problems. Her blood pressures are doing well. She has had no further seizure activity. Exam Vital Signs: Temperature 97.9 F 09/11/17 07:15 Pulse Rate 84 09/11/17 07:15 Respiratory Rate 14 09/11/17 07:15 Blood Pressure 117/63 09/11/17 07:15 Pulse Oximetry 92 09/11/17 07:15 Height/Weight/BMI: Height 1.73 m Weight 80.3 kg Body Mass Index 26.8 - Constitutional Present: no acute distress, well nourished, well developed, cooperative - Routine HEENT Exam Head: Present: normocephalic Eye: Present: EOMI ENT: Present: mucous membranes moist, oropharynx clear - Routine Neck Exam Present: supple - Routine Respiratory Exam Present: CTA bilaterally. Absent: wheezes - Routine Cardiovascular Exam Present: RRR, S1, S2. Absent: murmur - Routine Abdominal Exam Present: soft, normoactive bowel sounds, non distended. Absent: tenderness - Routine Extremities Exam Present: no edema - Routine Skin Exam Present: dry, warm - Routine Neurological Exam Present: alert, oriented X3, CN II-XII intact. Absent: motor deficit (her strength is good bilaterally. There is no facial droop. Her voice remains "laryngitic.") - Routine Psychiatric Exam Present: normal affect IRU A/P (1) Seizure disorder Current visit: Yes Status: Acute She has been stable on her current regimen of Keppra and Decadron. (2) Small cell lung carcinoma Current visit: Yes Status: Chronic (3) Hypertension Qualifiers: Hypertension type: essential hypertension Qualified Code(s): I10 - Essential (primary) hypertension Current visit: Yes Status: Chronic (4) Debility Current visit: Yes Status: Acute She has significantly improved. She is planning to return home today with 24- hour supervision. DVT Prophylaxis: Lovenox Resuscitation Status: Full Code - Course Hospital Course: Donald Huffman MD: 09/06/17 10:50 No recurrent seizures. Does have visual hallucinations out of the right field of vision. Blood pressures are controlled. Tolerating therapy well. 09/07/17 10:45 Blood pressures have been well controlled. No evidence of recurrent seizures. Cooperates with therapy. 09/10/17 11:04 Medically she is stable. No further seizures. Appetite increased likely related to Decadron. Doing well with therapy. 09/11/17 09:55 She continues to do well with therapy. Anticipate safe transition to home with 24 supervision. Blood pressures are good. - Interventions to Obtain Goals PT Treatment Plan: Balance/Proprioception, Functional Activities, Gait Training , Patient/Family Education, Therapeutic Exercise OT Treatment Plan: ADL (Basic Care), Balance Training, IADL, Pt./Family Education, Ther. Exercise for ADL
--- NOTE | 2017-09-11 10:32 | Discharge Summary ---
Discharge Information Date of admission: 09/04/17 15:32 Anticipated date of discharge: 09/11/17 Attending Physician: Donald Huffman MD Primary care physician: Garcia Norman MD Consults: 09/04/17 16:37 Physician Consult [CONS] Routine Consulting Provider: Morelia Martinez Reason For Exam: medical management Ordering Provider has Notified Animal Husbandry Teacher: Yes - Discharge Diagnosis (1) Seizure disorder Status: Acute (2) Small cell lung carcinoma Status: Chronic (3) Hypertension Status: Chronic (4) Debility Status: Acute 1. Seizures, S/P status epilepticus 2. Metastatic small cell lung cancer 3. Hypertension 4. Generalized debility - Laboratory Labs: 09/05/17 04:00 09/05/17 04:00 History of Present Illness HPI: Ada Sewell is a very pleasant 67-year-old female with history of metastatic small cell lung cancer to the brain. She developed acute confusion at home on and was ultimately transferred to [facility]. She was found to have status epilepticus and was intubated and treated appropriately at that location. CT scan of the head revealed improvement in the previously noted brain lesions. She was started on Keppra and injectable corticosteroids. At the conclusion of that stay in [place], she was quite weak and had developed multiple functional deficits. She required acute inpatient rehabilitation to monitor for recurrence of seizures, monitor blood pressure as well as to provide a multidisciplinary approach to her recovery, to involve PT, OT and ST. Hospital Course This is a general summary of the patient's hospital course. For more details refer to the complete medical record. The patient was admitted to acute inpatient rehabilitation at [facility] on 09/04/2017. She was followed by the hospitalist service, Dr. Huffman as well as by physical therapy, occupational therapy and speech therapy. Her Keppra and corticosteroids were continued. She had no further evidence of seizure activity but did express what appeared to be visual hallucinations in the right side of her field of vision. These subsequently abated. In addition she continued to have a sore throat initially, likely secondary to intubation. That also essentially resolved during the hospitalization on rehabilitation. She did display a "laryngitic" voice. She says her voice is getting better. Whether this was due to involvement of recurrent laryngeal nerve from the tumor is not clear at this time. If her laryngitic voice continues, would recommend ENT evaluation. The following levels of functional competence are to be considered preliminary information. The reader is encouraged to refer to actual therapy notes and reports for specific details. Patient was seen by speech therapy for cognitive linguistic treatment as well as swallow precautions. She initially was on a modified diet and that was improved to regular diet. She did display memory loss but this improved as well. Speech therapy did recommend 24-hour supervision at home at least during the initial portion of her return to home. She was seen by physical therapy. At the conclusion of her stay, transfers were essentially at modified independent level. She was able to ambulate over 600 feet with standby assistance to supervision level. Her balance improved. If she was distracted or turn her head suddenly, there was some loss of balance. For this reason she needs supervision. She was also seen by occupational therapy. At the conclusion therapy she was essentially independent for all ADLs. She did display some reduced safety awareness and decreased attention. Patient was felt to be stable for dismissal to home with 24-hour supervision as of 09/11/2017. Follow-up will be with Dr. Garcia Norman as well as Dr. Torres. Please note that the patient has been on dexamethasone 4 mg every 6 hours since being in [place]. Upon dismissal she is decreased to 4 mg twice daily. Further tapering will be per recommendation of Dr. Torres. At the time of dismissal she does not have evidence of cerebral edema. Hospital course: admission Agree with admission to IRU under the care of Dr. Huffman for ongoing therapy and strengthening We will continue to monitor patient for evidence of seizures. She will continue on Keppra 1000 milligrams twice a day long-term. Continue with Decadron. Given history of acid reflux. Will continue Protonix 40 milligrams daily Lovenox SQ for DVT PPX Encourage work with PT and OT for ongoing strengthening as patient does hope to return independently at home with her . The hospitalist services will continue to follow patient and medical management her existing comorbidities. At time of discharge her medical care will return to primary care provider, Dr. Garcia Norman 09/07/17 Laryngitis persists, but reportedly improving. Continue Keppra and Decadron. Symptoms improving. Continue therapies per attending. Time spent with patient: greater than 35 minutes Resuscitation Status: Full Code Discharge Plan - Med Rec/Dispo Referrals/Follow Up: Jayson Torres MD [Physician] - (Dr. Aneesh Torres on 10/18/17 at 2:40 pm for follow-up. [facility] [address] [place] [address]) Garcia Norman MD [Family Provider] - (Isabella Evans NP on 09/19/17 at 10:30 am for Hosp. follow-up. [address] [place] [address]) Steven Instructions: Fall Prevention for Older Adults (GEN) Prescriptions: New PEG 3350 17gm PACKET [Miralax] 17 gm PO DAILY PRN #1 packet PRN Reason: Constipation Continue Multivitamin [Multivitamins] 1 tab PO DAILY levETIRAcetam [Levetiracetam] 2 tab PO BID #120 tab Changed Dexamethasone Po [Decadron] 1 tab PO BID #30 tab - Disposition 01 Discharged Home, Self-Care - Dismissal Complete Discharge Instructions are:: Complete
--- NOTE | 2017-09-11 10:39 | Letter to Referring Physician ---
Dear Drs. Norman and Brian, This is a brief note to bring you up-to-date on the status of Ada Sewell and her stay on the acute inpatient rehabilitation unit at [facility]. As you are likely aware, this patient was admitted to [facility] on 08/30/17 for status epilepticus. During his stay she was intubated for about 3 days. Her seizures were controlled. She was started on Decadron and Keppra. CT scan of her head in [place] appeared to show improvement in the previously noted brain lesions. The patient was stabilized while on the acute level and admitted to inpatient rehabilitation unit at [facility] on September 04, 2017. While on inpatient rehabilitation, this patient was seen by occupational therapy , physical therapy and speech therapy and improved overall in their functional ability. We also monitored and managed the patient's hypertension while on Acute Rehab. Please see a copy of the history and physical examination as well as discharge summary enclosed with this letter for further details. Because of some memory issues, we do recommend 24-hour supervision for the short -term. In this regard, her has indicated there is subtle neoplasm to move in with them. Please note that she has been on dexamethasone 4 mg every 6 hours by mouth since her [place] hospitalization. At the time of dismissal she is sent home on 4 mg twice daily with further tapering per recommendation of Dr. Torres. At the time of dismissal she does not have evidence of cerebral edema. In addition, no pain medications were prescribed for her upon dismissal. Thank you for allowing us to be involved in this nice patient's care. Please contact me directly should you have any questions regarding their stay on the inpatient rehabilitation unit. Sincerely, Donald Huffman M.D.
== END 2017-09-11 12:25 | disposition home health service (06) | DRG 945 ==
PROVIDERS: ADMIT Internal Medicine; ATTEND Internal Medicine